=== PATIENT | female | born 1975 | race Caucasian/White ===

== ENCOUNTER 2019-07-21 13:15 | Outpatient (CLI) | payer MEDICARE, MEDICAID, SELFPAY ==
--- NOTE | 2019-07-21 13:29 | US_ITS ---
WS: [id number] RIGHT DIGITAL MAMMOGRAPHY WITH CAD CLINICAL INFORMATION: ABNORMAL/INCONCLUSIVE FINDING ON IMAGING OF BREAST COMPARISON: June 09, 2019 TECHNIQUE: 2 views of the right breast were obtained. FINDINGS: The right breast is composed of heterogeneous fibroglandular density tissue, which can limit the dete ction of small underlying mass lesions. Again seen is the focal 9 mm asymmetry in the anterior right breast. Ultrasound is pending. ULTRASOUND BREAST RIGHT TECHNIQUE: Ultrasound right breast focused area of concern. CLINICAL INFORMATION: ABNORMAL/INCONCLUSIVE FINDING ON IMAGING OF BREAST COMPARISON: None. FINDINGS: Ultrasound right breast at the 3 to 4:00 position 3 cm from the nipple. Hypoechoic complex cystic les ion with internal debris and septations. This lesion measures approximately 9.5 x 6.3 mm. Tiny amount of vascularity within the septations. This most likely represents a complex cyst but recommend furth er evaluation with ultrasound-guided biopsy/aspiration. US/US breast RT limited* [id number] IMPRESSION: BI-RADS: 4A-Suspicious: Low FOLLOW UP: US Guided Biopsy Recommended
== END 2019-07-21 13:16 | disposition home or self-care (01) ==
LOC: RADSHAW 13:21
PROVIDERS: Family Provider Family Medicine; Visit Provider Family Medicine
DX: R92.8 Other abnormal and inconclusive findings on diagnostic imaging of breast (principal)
CPT/HCPCS: 76642; 77065

== ENCOUNTER → 2019-07-22 15:37 | Outpatient (BNVA) | payer MEDICARE, MEDICAID, SELFPAY | PROVIDERS: Family Provider Family Medicine; PCP Family Medicine; Visit Provider Obstetrics & Gynecology | DX: N95.1 Menopausal and female climacteric states (principal) | CPT/HCPCS: 36415; 84443 ==

== ENCOUNTER 2019-08-03 21:56 | Emergency (ER) | payer MEDICARE, MEDICAID, SELFPAY ==
[2019-08-03 22:06] VITALS: BP 172/97; PULSE 94; RESP 18; TEMP 36.6; O2SAT 100; BMI 35.7
--- NOTE | 2019-08-03 22:09 | ED_ITS ---
Entered by Ann Sparks, acting as scribe for Aug 03, 2019 21:56 HPI - Allergic Reaction General: Chief complaint: Allergic Reaction Stated complaint: allergic reaction to unknown Time Seen by Provider: 08/03/19 22:05 Source: patient and family Mode of arrival: ambulatory History of Present Illness: HPI narrative: 43 y/o female presents to the ED with complaint of an allergic reaction. Pt states she has a hx of reactions from unknown causes. She had and episode of hives a few days ago, from an unidentified cause. Tonight she states she had another that began after dinner, this evening. MD complaint: allergic reaction Onset (ago): hour(s) Exposure: unknown Associated symptoms: Deny abdominal pain, dizziness, nausea or vomiting Severity: mild Review of Systems General: Reports: other (negative unless marked) Const: Denies: fever, chills, body aches, fatigue, malaise or diaphoresis Eyes: Denies: change in vision or blurry vision Card: Denies: chest pain, palpitations, irregular heart rhythm, syncope, pre- syncope, shortness of breath on exertion or shortness of breath when lying down GI: Denies: abdominal pain, nausea, vomiting, vomiting blood, coffee grounds in vomit, diarrhea, constipation, cramping, blood in stool or black tarry stool : Denies: flank pain, painful urination, urinary frequency, urinary urgency, decreased urine ouput, urinary incontinence or blood in urine Musc: Denies: neck pain, back pain, extremity pain, extremity swelling, joint pain, joint swelling, joint warmth or joint stiffness Neuro: Denies: headache, numbness in extremities, weakness in extremities, changes in sensation, lack of coordination, difficulty walking, dizziness, vertigo or confusion Endo: Denies: excessive thirst, tired all the time, cold intolerance, excessive sweating, flushing or hot flashes Johnny/Lymph: Denies: easy bruising, easy bleeding, petechiae or enlarged lymph nodes PFSH ED PFSH: Statuses (acute, chronic, etc) shown below reflect problem list status as previously entered and may not be historically accurate Surgical History History of hysterectomy (Acute) Family History Mother Breast cancer Hypertension Stroke Grandfather Heart disease maternal Social History Smoking and tobacco status: never smoked Alcohol intake: never Additional social history: poorly balanced diet Physical Exam Const: COMMON NORMALS: no apparent distress, oriented x3, no limitations, healthy appearing and well nourished EXAM LIMITATIONS: no altered mental status GENERAL APPEARANCE: cooperative, well kempt and well developed ORIENTATION/CONSCIOUSNESS: Yes awake Eye: COMMON NORMALS: PERRL, EOMs intact bilaterally, conjunctivae normal and no scleral icterus GENERAL EYE: normal appearance of both eyes and normal light reflex CONJUNCTIVA: Yes conjunctivae normal SCLERA: sclerae normal CORNEA: Yes corneas normal PUPIL: Yes PERRL DIRECT OPHTHALMOSCOPY: Yes normal light reflex Neck/C-Spine: COMMON NORMALS: full ROM, no lymphadenopathy, supple, no meningeal signs and no JVD GENERAL: Yes normal visual inspection and Yes trachea midline CERVICAL SPINE: Yes cervical ROM normal Chest: COMMONS NORMALS: inspection of chest normal and palpation of chest normal Resp: COMMON NORMALS: normal respiratory effort, no retractions, no use of accessory muscles and clear to auscultation bilaterally EFFORT & INSPECTION: Yes able to speak in complete sentences AUSCULTATION: clear to auscultation bilaterally Cardio: COMMON NORMALS: no JVD, regular rate, regular rhythm, S1 normal heart sound, S2 normal heart sound, no gallops, no clicks, no murmurs and no rub JUGULAR VENOUS DISTENTION: no JVD RATE: regular rate RHYTHM: regular rhythm HEART SOUNDS: S1 normal and S2 normal GI: COMMON NORMALS: soft to palpation, non-tender, no hepatosplenomegaly and no masses INSPECTION: Yes normal to inspection PALPATION: Yes soft and Yes no hepatosplenomegaly : COMMON NORMALS: Yes no CVA tenderness BLADDER/KIDNEY EXAM: Yes no CVA tenderness Back/Pelvis: COMMON NORMALS: no CVA tenderness, thoracic and lumbar spine normal to inspection, no thoracic nor lumbar tenderness and thoraco-lumbar ROM normal Extremity: COMMON NORMALS: normal to inspection, full ROM, normal capillary refill, no joint enlargement, no clubbing, cyanosis or edema and no calf tenderness Neuro: COMMON NORMALS: oriented x3, CN's II-XII intact bilaterally, moves all extremities, no focal motor deficits and no sensory deficits noted MENINGEAL SIGNS: Yes no meningeal signs Psych: COMMON NORMALS: mental status grossly normal, thought process normal, cooperative, affect normal, speech normal and activity/motor behavior normal APPEARANCE: Yes well kempt SPEECH: Yes normal speech THOUGHT PROCESS: normal thought process Course Vital Signs: Vital signs: Vital Signs Temperature 97.8 F 08/03/19 22:06 Pulse Rate 84 08/03/19 23:06 Respiratory Rate 16 08/03/19 22:36 Blood Pressure 167/88 08/03/19 23:06 Pulse Oximetry 97 08/03/19 22:21 MDM - Allergic Reaction MDM Narrative: Medical decision making narrative: Ileana comes in with an allergic reaction but now feels better. She has no angioedema, no throat ti ghtening, no shortness of breath only skin rash/hives. The hives that I saw were minimal. The symptoms have completely resolved and she is ready to go home. I had to give her a handwritten prescription for a Medrol Dosepak as she is allergic to prednisone. She has Pepcid and Benadryl at home that she will take and we discussed taking this on a scheduled basis for the next 3 days she denied having any questions or concerns with this. The Benadryl was 25 to 50 mg every 6 hours and the Pepcid was 40 mg every 12 hours and both were to be taken for the next 3 days. She understood to take the Medrol Dosepak to its completion. She had no other questions or concerns and agreed to follow-up as directed. Discharge Plan Discharge Patient Disposition: Home, Self-Care Clinical Impression: Allergic reaction Qualifiers: Encounter type: initial encounter Qualified Code(s): T78.40XA - Allergy, unspecified, initial encounter Condition: Stable Prescriptions: No Action amlodipine 5 mg tablet 2.5 mg PO DAILY RF: 0 epinephrine [EpiPen 2-Kostas] 0.3 mg/0.3 mL auto-injector 0.3 mg IM .as needed PRN (Reason: Allergic Reaction) RF: 0 ranitidine HCl 150 mg Tablet 150 mg PO DAILY RF: 0 Singulair 10 mg Tablet 10 mg PO DAILY RF: 0 Cymbalta 60 mg Capsule,Delayed Release(Dr/Ec) 60 mg PO DAILY RF: 0 Zyrtec 10 mg Tablet,Disintegrating 30 mg PO DAILY RF: 0 Discharge Orders: Discharge Order (Routine); Ordered 08/03/19 Ordered By: Yesenia Ayaal Referrals: Lincoln Garcia [Primary Care Provider] - Miguel Viera MD [Family Provider] - 1-3 days Discharge Diet: Advance as tolerated Discharge Activity: Increase activity as tolerated Patient Instructions: Allergic Reaction, Anaphylaxis (ED) Activity Restrictions/Additional Instructions: Please return to the ER immediately for any of the signs or symptoms listed on your discharge instruction sheets, worsening/changing of your symptoms, you are not getting better as quickly as expected, or for ANY other cause or concerns. Take your medications as directed. Return to the ER for any difficulty breathin g, tightening in her throat or for any other cause for concern. Take the Medrol Dosepak as prescribed. Take your Benadryl and Pepcid as we have discussed. Take the Medrol Dosepak to completion and the Benadryl and Pepcid for the next 3 days as we discussed. Coding Level of Care Code ED Staff Assistant for Chg Fwd Exam Problem Focused The documentation recorded by the patsyibBridger landeros Ashley, accurately reflects the service I personally performed and the decisions made by Lucy blackwell Eli N Aug 03, 2019 21:56
[2019-08-03 22:21] VITALS: BP 172/97; PULSE 88; RESP 18; O2SAT 97
[2019-08-03] MEDS: sodium chloride 0.9% 1,000 ML 100 ML IV (22:23)
[2019-08-03] MEDS: famotidine 20 mg/2 mL INJ 40 MG IVP (22:23)
[2019-08-03 22:36] VITALS: BP 172/97; PULSE 86; RESP 16
[2019-08-03 23:06] VITALS: BP 167/88; PULSE 84
[2019-08-04 00:08] VITALS: BP 153/99; PULSE 90; RESP 18
--- NOTE | 2019-08-04 00:43 | PC.NURSE ---
Introduced self to patient and initiated vital signs. Pt is A&O x 4 and agreeable. Pt states that the reason for the ER visit today is due to an allergic reaction after eating pizza and other foods for dinner tonight. Pt also complaining of shortness of breath and skin discomfort. Reassured patient of needs and will continue to monitor. Awaiting provider at bedside.
== END 2019-08-04 00:17 | disposition home or self-care (01) ==
PROVIDERS: Emergency Provider Emergency Medicine; Family Provider Family Medicine; PCP Family Medicine
DX: T78.40XA Allergy, unspecified, initial encounter (principal); X58.XXXA Exposure to other specified factors, initial encounter
CPT/HCPCS: 96360; 96361; 96374; 99281; J2930; J3490; J7030

== ENCOUNTER 2021-06-03 12:13 | Emergency (ER) | payer MEDICARE, MEDICAID, SELFPAY ==
[2021-06-03 13:06] VITALS: BP 143/94; PULSE 82; RESP 16; TEMP 36.8; O2SAT 100
--- NOTE | 2021-06-03 15:15 | W.ED.ANIMALB ---
Documented by User: FRANCOIS Mackenzie 06/03/21 16:40 HPI - Animal Bite General: Chief Complaint: Animal Bite Stated Complaint: Cat Bite on Right Hand Time Seen by Provider: 06/03/21 15:08 History of Present Illness: HPI narrative: Patient got bit by her pet cat yesterday. Now has swelling to the right hand between the thumb and forefinger that extends up into her arm. Tetanus is up-to-date MD complaint: animal bite Onset (ago): day(s) Animal: cat Description of animal: household pet and immunizations UTD Mechanism: bite Location - Extremities: Right: hand Pain description: dull and constant Severity scale (1-10): 4 Context: playing with animal Associated symptoms: Reports no associated symptoms; Deny chills or fever(s) Review of Systems Const: Reports: body aches; Denies: fever(s) or chills Card: Denies: chest pain Resp: Denies: dyspnea Skin/Breast: Reports: erythema, skin tenderness and skin swelling PFSH ED PFSH: Surgical History History of hysterectomy Family History Mother Breast cancer Hypertension Stroke Grandfather Heart disease maternal Social History Smoking and tobacco status: never smoked Alcohol intake: never Additional social history: poorly balanced diet Physical Exam Const: COMMON NORMALS: no acute distress GENERAL APPEARANCE: cooperative Psych: COMMON NORMALS: mental status grossly normal Skin: OTHER: Marked swelling to right hand with 3 puncture wound bites between the thumb and forefinger. Red streaks extending up the right arm up through the AC space and stopping about and past that. Course Vital Signs: Vital signs: Vital Signs Temperature 98.2 F 06/03/21 13:06 Pulse Rate 87 06/03/21 19:48 Respiratory Rate 16 06/03/21 19:48 Blood Pressure 155/89 06/03/21 19:48 Pulse Oximetry 97 06/03/21 19:48 MDM - Animal Bite MDM Narrative: Medical decision making narrative: Patient with swelling to right hand after cat bite yesterday. PCP sent her over here for IV antibiotics. Patient complains of swelling started last night and redness moved up to arm. Patient has been afebrile. Does have some chills no fever. IV antibiotics were administered. Are antibiotics ordered. Patient follow-up primary care provider next week our return here if worsening symptoms. Discharge Plan Discharge Patient Disposition: Home Clinical Impression: Cat bite Qualifiers: Encounter type: initial encounter Qualified Code(s): W55.01XA - Bitten by cat, initial encounter Condition: Stable Prescriptions: New doxycycline hyclate 100 mg capsule 100 mg PO BID 7 Days Qty: 14 RF: 0 No Action amlodipine 5 mg tablet 2.5 mg PO DAILY RF: 0 epinephrine [EpiPen 2-Kostas] 0.3 mg/0.3 mL auto-injector 0.3 mg IM .as needed PRN (Reason: Allergic Reaction) RF: 0 ranitidine HCl 150 mg Tablet 150 mg PO DAILY RF: 0 Singulair 10 mg Tablet 10 mg PO DAILY RF: 0 Cymbalta 60 mg Capsule,Delayed Release(Dr/Ec) 60 mg PO DAILY RF: 0 Zyrtec 10 mg Tablet,Disintegrating 30 mg PO DAILY RF: 0 Discharge Orders: Discharge ED (Routine); Ordered 06/03/21 Ordered By: Kaiser Michaud Referrals: Miguel Viera MD [Primary Care Provider] - Discharge Diet: Usual diet Discharge Activity: Increase activity as tolerated Patient Instructions: Animal Bite (ED), Puncture Wound (ED) Activity Restrictions/Additional Instructions: Follow-up with medical provider as directed. Take medications as prescribed. Return to the ER or your medical provider if condition worsens. Please read and understand discharge instructions. If any questions ask please. Coding Level of Care Code ED Wildlife Conservation Professor for Chg Fwd Exam Expanded Problem Focused Documented by User: Rico Monzon DO 06/06/21 06:38 HPI - Animal Bite General: Chief Complaint: Animal Bite Stated Complaint: Cat Bite on Right Hand Time Seen by Provider: 06/03/21 15:08 PFSH ED PFSH: Surgical History History of hysterectomy Family History Mother Breast cancer Hypertension Stroke Grandfather Heart disease maternal Social History Smoking and tobacco status: never smoked Alcohol intake: never Additional social history: poorly balanced diet Course Vital Signs: Vital signs: Vital Signs Temperature 98.2 F 06/03/21 13:06 Pulse Rate 87 06/03/21 19:48 Respiratory Rate 16 06/03/21 19:48 Blood Pressure 155/89 06/03/21 19:48 Pulse Oximetry 97 06/03/21 19:48 MDM - Animal Bite MDM Narrative: Medical decision making narrative: Chart reviewed and patient discussed with midlevel. Agree with assessment and plan. Discharge Plan Discharge Patient Disposition: Home Clinical Impression: Cat bite Qualifiers: Encounter type: initial encounter Qualified Code(s): W55.01XA - Bitten by cat, initial encounter Condition: Stable Prescriptions: New doxycycline hyclate 100 mg capsule 100 mg PO BID 7 Days Qty: 14 RF: 0 No Action amlodipine 5 mg tablet 2.5 mg PO DAILY RF: 0 epinephrine [EpiPen 2-Kostas] 0.3 mg/0.3 mL auto-injector 0.3 mg IM .as needed PRN (Reason: Allergic Reaction) RF: 0 ranitidine HCl 150 mg Tablet 150 mg PO DAILY RF: 0 Singulair 10 mg Tablet 10 mg PO DAILY RF: 0 Cymbalta 60 mg Capsule,Delayed Release(Dr/Ec) 60 mg PO DAILY RF: 0 Zyrtec 10 mg Tablet,Disintegrating 30 mg PO DAILY RF: 0 Discharge Orders: Discharge ED (Routine); Ordered 06/03/21 Ordered By: Kaiser Michaud Referrals: Miguel Viera MD [Primary Care Provider] - Discharge Diet: Usual diet Discharge Activity: Increase activity as tolerated Patient Instructions: Animal Bite (ED), Puncture Wound (ED) Activity Restrictions/Additional Instructions: Follow-up with medical provider as directed. Take medications as prescribed. Return to the ER or your medical provider if condition worsens. Please read and understand discharge instructions. If any questions ask please. Coding Level of Care Code ED Wildlife Conservation Professor for Fidelina Fwd Exam Expanded Problem Focused
[2021-06-03] MEDS: doxycycline 100 MG in sodium chloride 0.9% (plus) 100 ML IV (16:45)
[2021-06-03 19:48] VITALS: BP 155/89; PULSE 87; RESP 16; O2SAT 97
== END 2021-06-03 18:00 | disposition home or self-care (01) ==
PROVIDERS: Emergency Provider Nurse Practitioner Family; PCP Family Medicine
DX: S61.451A Open bite of right hand, initial encounter (principal); W55.01XA Bitten by cat, initial encounter
CPT/HCPCS: 96365; 99283; J3490

== ENCOUNTER 2022-02-15 15:11 | Outpatient (CLI) | payer MEDICARE, MEDICAID, SELFPAY ==
[2022-02-15 16:00] LABS: Basophils # 0.1 10^3/uL (0.0-0.1); Basophils % 0.6 %; Eosinophils # 0.1 10^3/uL (0.0-0.8); Eosinophils % 1.2 %; Hematocrit 41.3 % (37.0-47.0); Hemoglobin 13.8 g/dL (11.5-15.3); Lymphocytes # 1.9 10^3/uL (0.8-4.8); Lymphocytes % 21.5 %; Mean Corpuscular HGB Conc 33.4 g/dL (30.0-36.0); Mean Corpuscular Hemoglobin 29.8 pg (28.0-34.0); Mean Corpuscular Volume 89.2 fl (81-99); Mean Platelet Volume 9.1 fL (7.4-10.4); Monocytes # 0.7 10^3/uL (0.2-0.9); Monocytes % 7.3 %; Neutrophils # 6.15 10^3/uL (1.8-7.7); Neutrophils % 69.1 %; Nucleated Red Blood Cells % 0 %; Platelet Count 391 10^3/cmm (130-400); Red Blood Count 4.63 10^6/uL (4.1-5.3); White Blood Count 8.9 10^3/uL (4.0-10.0)
[2022-02-15 16:14] LABS: Alanine Aminotransferase 32 U/L (0-33); Albumin Level 4.3 g/dL (3.5-5.2); Alkaline Phosphatase 93 IU/L (35-105); Anion Gap 15.3 (5-19); Aspartate Amino Transferase 21 U/L (0-32); Blood Urea Nitrogen 6 mg/dL (6-20); Calcium 9.4 mg/dL (8.5-10.5); Carbon Dioxide 27 mmol/L (22-29); Chloride 99 mmol/L (98-107); Globulin 2.8 g/dL (1.3-4.6); Glomerular Filtration Rate 76.9 mL/min (90-130); Glucose 133 mg/dL (65-115); Osmolality Calculated 286 mOsm/kg (285-295); Potassium 3.3 mmol/L (3.5-5.1); Sodium 138 mmol/L (136-145); Total Bilirubin 0.4 mg/dL (0.15-1.2); Total Protein 7.1 g/dL (6.6-8.7)
== END 2022-02-15 15:12 | disposition home or self-care (01) ==
PROVIDERS: PCP Family Medicine; Visit Provider Registered Nurse
DX: R53.83 Other fatigue (principal)
CPT/HCPCS: 80053; 85025

== ENCOUNTER → 2023-01-11 08:05 | Outpatient (BNVA) | payer MEDICARE, MEDICAID, SELFPAY | PROVIDERS: PCP Family Medicine; Visit Provider Nurse Practitioner Family | DX: Z51.89 Encounter for other specified aftercare (principal) | CPT/HCPCS: 99212 ==

== ENCOUNTER 2023-02-17 16:28 | Emergency (ER) | payer MEDICARE, MEDICAID, SELFPAY ==
[2023-02-17 17:00] VITALS: BP 134/66; PULSE 99; RESP 14; TEMP 36.7; O2SAT 96
[2023-02-17 17:06] VITALS: BP 145/89; PULSE 95; RESP 16; O2SAT 98
--- NOTE | 2023-02-17 17:13 | ED_ITS ---
HPI - Abdominal Pain General: Chief Complaint: Abdominal Pain Stated Complaint: abd pain/no bm/weight loss Time Seen by Provider: 02/17/23 17:13 History of Present Illness: Ms Medeiros is a 47-year-old lady with complex history including prior appendectomy and transvaginal hysterectomy presented the emergency department for abdominal pain. She notes pain for several months however has worsened lately. She apparently was told in the past that she had a umbilical hernia though reports that her pain feels lower down. Has nausea but no vomiting. Has constipation. Moderate to severe intensity symptoms. No other specific changes in health, exacerbating, or alleviating factors identified. Onset (ago): month(s) Pain Consistency: intermittent Severity: moderate Associated Symptoms: Reports no associated symptoms Review of Systems General: Reports: 10 or more systems reviewed and unremarkable except in HPI and below PFSH ED PFSH: Surgical History History of hysterectomy Family History Mother Breast cancer Hypertension Stroke Grandfather Heart disease maternal Social History Smoking and tobacco status: never smoked Alcohol intake: never Substance/Drug Use: never Additional social history: poorly balanced diet Physical Exam Const: COMMON NORMALS: alert GENERAL APPEARANCE: cooperative and well developed HENMT: COMMON NORMALS: normocephalic and atraumatic HEAD & SCALP: normocephalic and atraumatic Eye: COMMON NORMALS: conjunctivae normal CONJUNCTIVA: Yes conjunctivae normal SCLERA: sclerae normal Neck/C-Spine: COMMON NORMALS: supple GENERAL: Yes trachea midline Resp: COMMON NORMALS: clear to auscultation bilaterally EFFORT & INSPECTION: Yes able to speak in complete sentences AUSCULTATION: clear to auscultation bilaterally Cardio: COMMON NORMALS: regular rate and regular rhythm RATE: regular rate RHYTHM: regular rhythm GI: COMMON NORMALS: Soft to palpation PALPATION: Yes Soft to palpation, Yes Tenderness to palpation present (GI), No Guarding due to palpation present (GI) and No Rigid due to palpation Extremity: GENERAL: Yes normal exam except as noted and No edema Neuro: COMMON NORMALS: moves all extremities SENSORIUM/ORIENTATION: Yes alert and No Orientation impaired Psych: COMMON NORMALS: mental status grossly normal and Normal thought process present THOUGHT PROCESS: Normal thought process present Course Vital Signs: Vital signs: Vital Signs Temperature 98.0 F 02/17/23 17:00 Pulse Rate 88 02/17/23 18:36 Respiratory Rate 16 02/17/23 17:06 Blood Pressure 154/93 02/17/23 20:29 Pulse Oximetry 98 02/17/23 20:29 Oxygen Delivery Me thod Room Air 02/17/23 17:36 MDM - Abdominal Pain Medical Decision Making 47-year-old lady presenting with abdominal symptoms. Exam as above. Abdominal pain with no evidence of acute surgical abdomen. Labs with mild leukocytosis, normal hemoglobin and platelet count. No significant electrolyte derangement to explain symptoms. hCG negative. No UTI. Mild dehydration. CT with no acute findings per incidental findings discussed. No obstruction or fecal impaction. Patient improved with fluids, antispasmodic, analgesia, antiemetic. She is able to tolerate p.o. intake. The results of ED evaluation were discussed with the patient including prescriptions and/or symptomatic cares (if applicable) including appropriate and responsible use, followup plan, and return precautions. The patient verbalized understanding and felt safe for discharge. Medical Records I reviewed the patient's medical records. Lab Data I reviewed the patient's lab results. 02/17/23 17:33 02/17/23 17:33 Labs/Radiology: Radiology Impressions Abdomen/Pelvis CT 02/17/23 17:59 IMPRESSION: 1. No acute findings. 2. Nonobstructing left renal calculus. 3. Mild diverticulosis of the colon. COMMENTS: Consistent with the [employer]'s Incidental Findings Committee white paper (J Am Dao Radiol 2018): Any incidental renal lesion less than 1 cm or classified as too small to characterize, or any incidental cystic renal lesion characterized as simple-appearing, is likely benign. No follow-up imaging is recommended for these lesions per consensus recommendations based on imaging criteria. Laboratory Results WBC 12.1 10^3/uL (4.0-10.0) H 02/17/23 17:33 RBC 4.99 10^6/uL (4.1-5.3) 02/17/23 17:33 Hgb 14.9 g/dL (11.5-15.3) 02/17/23 17:33 Hct 43.7 % (37.0-47.0) 02/17/23 17: MCV 87.6 fl (81-99) 02/17/23 17: MCH 29.9 pg (28.0-34.0) 02/17/23 17: MCHC 34.1 g/dL (30.0-36.0) 02/17/23 17: RDW 11.6 % (12.1-15.1) L 02/17/23 17: Plt Count 313 10^3/cmm (130-400) 02/17/23 17: MPV 8.9 fL (7.4-10.4) 02/17/23 17: Neut % (Auto) 74.3 % 02/17/23 17: Lymph % (Auto) 14.1 % 02/17/23 17: [place] % (Auto) 9.2 % 02/17/23 17: Eos % (Auto) 0.7 % 02/17/23 17: Baso % (Auto) 0.5 % 02/17/23 17: Neut # (Auto) 9.00 10^3/uL (1.8-7.7) H 02/17/23 17:33 Lymph # (Auto) 1.7 10^3/uL (0.8-4.8) 02/17/23 17: [place] # (Auto) 1.1 10^3/uL (0.2-0.9) H 02/17/23 17: Eos # (Auto) 0.1 10^3/uL (0.0-0.8) 02/17/23 17: Baso # (Auto) 0.1 10^3/uL (0.0-0.1) 02/17/23 17: Nucleated RBC % (auto) 0 % 02/17/23 17: Nucleated RBCs # 0.0 /100WBC 02/17/23 17: Sodium 135 mmol/L (136-145) L 02/17/23 17: Potassium 4.4 mmol/L (3.5-5.1) 02/17/23 17: Chloride 100 mmol/L (98-107) 02/17/23 17: Carbon Dioxide 24 mmol/L (22-29) 02/17/23 17:33 Anion Gap 15.4 (5-19) 02/17/23 17:33 BUN 9 mg/dL (6-20) 02/17/23 17:33 Creatinine 0.9 mg/dL (0.5-0.9) 02/17/23 17:33 GFR Calculation 66.8 mL/min (90-130) L 02/17/23 17:33 Glucose 74 mg/dL (65-115) 02/17/23 17:33 POC Glucose 77 mg/dL (70-110) 02/17/23 17:48 Calculated Osmolality 277 mOsm/kg (285-295) L 02/17/23 17:33 Calcium 10.6 mg/dL (8.5-10.5) H 02/17/23 17:33 Total Bilirubin 0.4 mg/dL (0.15-1.2) 02/17/23 17:33 AST 22 U/L (0-32) 02/17/23 17:33 ALT 29 U/L (0-33) 02/17/23 17:33 Alkaline Phosphatase 84 U/L (35-105) 02/17/23 17:33 Total Protein 7.4 g/dL (6.6-8.7) 02/17/23 17:33 Albumin 4.2 g/dL (3.5-5.2) 02/17/23 17:33 Globulin 3.2 g/dL (1.3-4.6) 02/17/23 17:33 Lipase 24 U/L (13-60) 02/17/23 17:33 HCG, Qual Negative (Negative) 02/17/23 17:33 Urine Color Yellow (Yellow) 02/17/23 18:48 Urine Appearance Clear (CLEAR) 02/17/23 18:48 Urine pH 7 (5-7) 02/17/23 18:48 Ur Specific [place] 1.010 (1.005-1.030) 02/17/23 18:48 Urine Protein Neg (Negative) 02/17/23 18:48 Urine Glucose (UA) Norm (Normal) 02/17/23 18:48 Urine Ketones 1+ (Negative) H 02/17/23 18:48 Urine Blood Neg (Negative) 02/17/23 18:48 Urine Nitrate Negative (Negative) 02/17/23 18:48 Urine Bilirubin Neg (Negative) 02/17/23 18:48 Urine Urobilinogen Norm mg/dL (Negative) 02/17/23 18:48 Ur Leukocyte Esterase Negative (Negative) 02/17/23 18:48 Discharge Plan Discharge Patient Disposition: Home Clinical Impression: Abdominal pain Condition: Stable Prescriptions: New tramadol 50 mg tablet 50 mg PO Q6H PRN (Reason: pain) Qty: 14 0RF No Action amlodipine 5 mg tablet 2.5 mg PO DAILY epinephrine [EpiPen 2-Kostas] 0.3 mg/0.3 mL auto-injector 0.3 mg IM .as needed PRN (Reason: Allergic Reaction) ranitidine HCl 150 mg Tablet 150 mg PO DAILY Singulair 10 mg Tablet 10 mg PO DAILY Cymbalta 60 mg Capsule,Delayed Release(Dr/Ec) 60 mg PO DAILY Zyrtec 10 mg Tablet,Disintegrating 30 mg PO DAILY Discharge Orders: Discharge ED (Routine); Ordered 02/17/23 Ordered By: Cristobal Hardy Referrals: Miguel Viera MD [Primary Care Provider] - Discharge Diet: Advance as tolerated and Clear Liquid Discharge Activity: Increase activity as tolerated Patient Instructions: Abdominal Pain (ED), Opioid Safety Activity Restrictions/Additional Instructions: Thank you for visiting the emergency department. You were seen and eval for abdominal pain. The exact cause of your symptoms is unclear as discussed. I recommend continued outpatient follow-up. Return for uncontrolled symptoms or anything else that you are concerned about and feel needs emergency department evaluation. Coding Level of Care Code ED Taste Tester for Fidelina Duran
[2023-02-17 17:36] VITALS: PULSE 93; O2SAT 97
[2023-02-17 17:42] LABS: Basophils # 0.1 10^3/uL (0.0-0.1); Basophils % 0.5 %; Eosinophils # 0.1 10^3/uL (0.0-0.8); Eosinophils % 0.7 %; Hematocrit 43.7 % (37.0-47.0); Hemoglobin 14.9 g/dL (11.5-15.3); Lymphocytes # 1.7 10^3/uL (0.8-4.8); Lymphocytes % 14.1 %; Mean Corpuscular HGB Conc 34.1 g/dL (30.0-36.0); Mean Corpuscular Hemoglobin 29.9 pg (28.0-34.0); Mean Corpuscular Volume 87.6 fl (81-99); Mean Platelet Volume 8.9 fL (7.4-10.4); Monocytes # 1.1 10^3/uL (0.2-0.9); Monocytes % 9.2 %; Neutrophils % 74.3 %; Nucleated Red Blood Cells % 0 %; Platelet Count 313 10^3/cmm (130-400); Red Blood Count 4.99 10^6/uL (4.1-5.3); Red Cell Distribution Width 11.6 % (12.1-15.1); White Blood Count 12.1 10^3/uL (4.0-10.0)
[2023-02-17] MEDS: ondansetron 2 mg/ML SDV 2 mL 4 MG IVP (17:54)
[2023-02-17] MEDS: sodium chloride 0.9% 1,000 ML 999 ML IV (17:55)
--- NOTE | 2023-02-17 17:59 | CTR_ITS ---
PROCEDURE INFORMATION: Exam: CT Abdomen And Pelvis With Contrast Exam date and time: 02/17/2023 6:51 PM Age: 47 years old Clinical indication: Abdominal pain; Generalized; Additional info: Abd pain, lower, worsening TECHNIQUE: Imaging protocol: Computed tomography of the abdomen and pelvis with contrast. Radiation optimization: All CT scans at this facility use at least one of these dose optimization techniques: automated exposure control; mA and/or kV adjustment per patient size (includes targeted exams where dose is matched to clinical indication); or iterative reconstruction. Contrast material: OMNIPAQUE 350; Contrast volume: 100 ml; Contrast route: INTRAVENOUS (IV); REPORTING DATA: Count of CT and Cardiac NM exams in prior 12 months: This patient has received 0 known CTs and 0 known cardiac nuclear medicine studies in the 12 months prior to the current study. COMPARISON: NM hepatobiliary w phar* [id number] 01/24/2017 7:41 AM RADIATION DOSE METRICS: Total DLP (mGy-cm): 910.47 FINDINGS: Tubes, catheters and devices: Pacemaker leads in the heart. Liver: Normal. No mass. Gallbladder and bile ducts: Normal. No calcified stones. No ductal dilation. Pancreas: Normal. No ductal dilation. Spleen: Normal. No splenomegaly. Adrenal glands: Normal. No mass. Kidneys and ureters: 5 mm nonobstructing calculus in the left kidney. Small central cysts in the left kidney, Hounsfield units less than 20. The right kidney is normal. No ureteral calculus or hydronephrosis. Stomach and bowel: Mild diverticulosis of the distal colon. No diverticulitis. Contrast opacified stomach and small bowel are unremarkable. No wall thickening or obstruction. Appendix: The appendix is not visualized. No secondary signs of appendicitis. Intraperitoneal space: Unremarkable. No free air. No significant fluid collection. Vasculature: Unremarkable. No abdominal aortic aneurysm. Lymph nodes: Unremarkable. No enlarged lymph nodes. Urinary bladder: Unremarkable as visualized. Reproductive: The uterus is absent. Bilateral ovarian follicles or small benign cysts measuring up to 2.5 cm. Bones/joints: Mild degenerative changes of the spine. No acute fracture. Soft tissues: Small fat containing umbilical hernia. CT/CT abdomen pelvis w con* [id number] IMPRESSION: 1. No acute findings. 2. Nonobstructing left renal calculus. 3. Mild diverticulosis of the colon. COMMENTS: Consistent with the [employer]'s Incidental Findings Committee white paper (J Am Dao Radiol 2018): Any incidental renal lesion less than 1 cm or classified as too small to characterize, or any incidental cystic renal lesion characterized as simple-appearing, is likely benign. No follow-up imaging is recommended for these lesions per consensus recommendations based on imaging criteria.
[2023-02-17] MEDS: ketorolac 30 mg/mL INJ 15 MG IVP (18:04)
[2023-02-17 18:10] LABS: Glucose Point of Care 77 mg/dL (70-110)
[2023-02-17 18:12] LABS: Alanine Aminotransferase 29 U/L (0-33); Albumin Level 4.2 g/dL (3.5-5.2); Alkaline Phosphatase 84 U/L (35-105); Anion Gap 15.4 (5-19); Aspartate Amino Transferase 22 U/L (0-32); Blood Urea Nitrogen 9 mg/dL (6-20); Calcium 10.6 mg/dL (8.5-10.5); Carbon Dioxide 24 mmol/L (22-29); Chloride 100 mmol/L (98-107); Globulin 3.2 g/dL (1.3-4.6); Glomerular Filtration Rate 66.8 mL/min (90-130); Glucose 74 mg/dL (65-115); Lipase 24 U/L (13-60); Osmolality Calculated 277 mOsm/kg (285-295); Potassium 4.4 mmol/L (3.5-5.1); Sodium 135 mmol/L (136-145); Total Bilirubin 0.4 mg/dL (0.15-1.2); Total Protein 7.4 g/dL (6.6-8.7)
[2023-02-17 18:16] LABS: HCG, Serum Qual Negative (Negative)
[2023-02-17 18:36] VITALS: BP 181/110; PULSE 88; O2SAT 97
[2023-02-17] MEDS: iohexol 350 mg/mL 500 mL Btl (per mL) IV (18:51)
[2023-02-17 18:53] LABS: Add Urine Microscopic? NO; Charge for UA Resulting for Rev
[2023-02-17] MEDS: barium sulfate 450 mL Oral Susp PO (18:53)
[2023-02-17 18:59] LABS: Urine Appearance Clear (CLEAR); Urine Color Yellow (Yellow)
[2023-02-17 19:00] LABS: Bilirubin Urine Neg (Negative); Blood Urine Neg (Negative); Glucose Urine UA Norm (Normal); Ketones Urine 1+ (Negative); Leukocyte Esterase Urine Negative (Negative); Nitrate Urine Negative (Negative); Protein Urine Neg (Negative); Urobilinogen Urine Norm (Negative); pH Urine 7 (5-7)
[2023-02-17] MEDS: dicyclomine 10 mg Capsule PO (20:10)
[2023-02-17 20:29] VITALS: BP 154/93; O2SAT 98
== END 2023-02-17 20:30 | disposition home or self-care (01) ==
PROVIDERS: Nurse Practitioner Family; Emergency Provider Emergency Medicine; PCP Family Medicine
DX: R10.9 Unspecified abdominal pain (principal); K57.30 Diverticulosis of large intestine without perforation or abscess without bleeding
CPT/HCPCS: 36415; 36416; 74177; 80053; 81003; 82962; 83690; 84703; 85025; 96374; 96375; 99285; J1885; J2405; J7030; Q9967

== ENCOUNTER 2023-11-22 21:23 | Emergency (ER) | payer MEDICARE, MEDICAID, SELFPAY ==
[2023-11-22 21:29] VITALS: BP 139/71; PULSE 84; RESP 20; TEMP 36.7; O2SAT 100; BMI 33.3
--- NOTE | 2023-11-22 23:21 | XRR_ITS ---
PROCEDURE INFORMATION: Exam: XR Cervical Spine Exam date and time: 11/23/2023 12:05 AM Age: 48 years old Clinical indication: Neck pain; Additional info: Neck pain radiating into right arm TECHNIQUE: Imaging protocol: Radiologic exam of the cervical spine. Views: 2 or 3 views. COMPARISON: CR XR cervical spine 4-5V [id number] 07/02/2017 2:36 PM FINDINGS: Bones/joints: There is a diffuse loss of disc height seen within the cervical spine most notably C5-C7 compatible with degenerative disc disease. This appears more prominent today compared 07/02/2017. Soft tissues: Unremarkable. XR/XR cervical spine 3V* [id number] IMPRESSION: There are no acute osseous findings.
--- NOTE | 2023-11-23 00:11 | ED_ITS ---
HPI - Neck Pain/Injury General: Chief Complaint: Neck Pain/Injury Stated Complaint: Bone Spur in C7\Pain Time Seen by Provider: 11/23/23 00:10 History of Present Illness: Patient has known vertebral disc disease and spurring in the neck. Patient is awaiting surgery for the neck. Patient received a epidural at the middle of October but over the last 2 to 3 days he has had recurring of her pain. Patient was unable to control it tonight with medications at home. Patient started a steroid dose taper today and some muscle relaxers with minimal relief. Review of Systems General: Reports: 10 or more systems reviewed and unremarkable except in HPI and below Musc: Reports: neck pain PFSH ED PFSH: Surgical History History of hysterectomy Family History Mother Breast cancer Hypertension Stroke Grandfather Heart disease maternal Social History Smoking and tobacco/nicotine status: never used tobacco/nicotine Alcohol intake: never Substance/Drug Use: never Additional social history: poorly balanced diet Physical Exam Const: COMMON NORMALS: alert HENMT: COMMON NORMALS: normocephalic HEAD & SCALP: normocephalic Neck/C-Spine: COMMON NORMALS: full ROM CERVICAL SPINE: Yes Cervical spine tenderness Resp: COMMON NORMALS: normal respiratory effort Cardio: COMMON NORMALS: regular rate RATE: regular rate GI: COMMON NORMALS: non-tender Back/Pelvis: COMMON NORMALS: thoracic and lumbar spine normal to inspection Neuro: SENSORIUM/ORIENTATION: Yes alert Skin: COMMON NORMALS: turgor normal GENERAL SKIN EXAM: turgor normal Course Vital Signs: Vital signs: Vital Signs Temperature 98.0 F 11/22/23 21:29 Pulse Rate 84 11/22/23 21:29 Respiratory Rate 20 H 11/22/23 21:29 Blood Pressure 139/71 11/22/23 21:29 Pulse Oximetry 100 11/22/23 21:29 Oxygen Delivery Me thod Room Air 11/22/23 21:29 MDM - Neck Pain/Injury Medical Decision Making Patient comes in for worsening neck pain. On exam patient appears nontoxic. Patient has some tenderness along the cervical vertebra. Patient has normal range of motion of the neck. Patient has muscle tenderness of the cervical spine. Differential diagnosis intervertebral disc disease, facet arthritis, cervical radiculopathy, cervical strain. Patient does have known vertebral disc disease. Will go ahead and treat patient's acute pain with a dose of hydromorphone 1 mg, 10 mg of dexamethasone, and 30 mg ketorolac. Patient was recommended to follow-up with primary care for further instructions. Patient was written for 7 tablets of hydrocodone. Patient reports understanding agreed to plan. XR interpretation done by ED provider, pending radiology final review Discharge Plan Discharge Patient Disposition: Home Clinical Impression: Cervical pain (neck) Condition: Stable Prescriptions: New hydrocodone-acetaminophen 5-325 mg tablet 1 tab PO Q8H PRN (Reason: pain) Qty: 7 0RF No Action amlodipine 5 mg tablet 2.5 mg PO DAILY epinephrine [EpiPen 2-Kostas] 0.3 mg/0.3 mL auto-injector 0.3 mg IM .as needed PRN (Reason: Allergic Reaction) ranitidine HCl 150 mg Tablet 150 mg PO DAILY Singulair 10 mg Tablet 10 mg PO DAILY Cymbalta 60 mg Capsule,Delayed Release(Dr/Ec) 60 mg PO DAILY Zyrtec 10 mg Tablet,Disintegrating 30 mg PO DAILY tramadol 50 mg tablet 50 mg PO Q6H PRN (Reason: pain) Qty: 14 0RF Discharge Orders: Discharge ED (Routine); Ordered 11/23/23 Ordered By: Juan Jose Goff Referrals: Sharron Horan NP [Primary Care Provider] - Discharge Diet: Usual diet Discharge Activity: Increase activity as tolerated Patient Instructions: Neck Pain (ED), Opioid Safety Activity Restrictions/Additional Instructions: Activity as tolerated. Follow-up with specialist tomorrow regarding pain. Return to ER for new concerns. Coding Level of Care Code ED Button Machine Operator for Fidelina Duran
[2023-11-23 01:02] VITALS: RESP 18
[2023-11-23] MEDS: HYDROmorphone 1 mg/mL INJ 1 mL IM (01:02)
[2023-11-23] MEDS: ketorolac 30 mg/mL INJ IM (01:02)
[2023-11-23] MEDS: dexamethasone 10 mg/mL INJ IM (01:02)
== END 2023-11-23 01:00 | disposition home or self-care (01) ==
PROVIDERS: Emergency Provider Nurse Practitioner Family; PCP Nurse Practitioner Family
DX: M54.2 Cervicalgia (principal)
CPT/HCPCS: 72040; 96372; 99284; J1100; J1170; J1885

== ENCOUNTER 2024-06-23 14:54 | Emergency (ER) | payer MEDICARE, MEDICAID, SELFPAY ==
[2024-06-23 14:57] VITALS: BP 145/74; PULSE 86; RESP 18; TEMP 36.7; O2SAT 99; BMI 31.4
--- NOTE | 2024-06-23 15:08 | ED_ITS ---
HPI - Abdominal Pain 2 General: Chief Complaint: Abdominal Pain Stated Complaint: abd pain, n/v Time Seen by Provider: 06/23/24 14:56 Source: patient and family Mode of arrival: EMS Limitations: no limitations History of Present Illness: Patient is a 48-year-old female presents to ED today via EMS after she was sent here from an outlying clinic for further evaluation of abdominal pain. Most of history is provided by patient's significant other. He states patient has had intermittent abdominal pains over the past several months. She was seen here in our facility over a year ago for similar symptoms. She states she has seen her primary care provider many times for this issue and significant other states that her provider seems to think it might be adhesions. 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 Patient states she has not been referred to GI. Significant other states she can barely eat and has lost weight over the past 2 weeks. She has never ran fevers. States she is having a little non-bloody diarrhea. Denies urinary symptoms. She was at clinic today and given zofran. She states while at the clinic the pain triggered an Raynaud's reaction which is reportedly common for her. States she has had colonoscopies in the past that were unremarkable. She has also had EGD. MD elicited complaint: abdominal pain Pertinent past history: none Onset (ago): month(s) Pain Consistency: intermittent Location: Diffuse Severity: severe Quality: cramping and burning Radiation: none Migration to: no migration Relieving factors: nothing Associated Symptoms: Reports diarrhea and nausea; Denies chills, dysuria, fever(s), hematemesis and vomiting Related Data Home Medications Medication Instructions Recorded Confirmed amlodipine 5 mg tablet 2.5 mg PO DAILY 07/22/19 08/03/19 epinephrine 0.3 mg/0.3 mL 0.3 mg IM .as needed PRN Allergic 07/22/19 08/03/19 injection, auto-injector (EpiPen Reaction 2-Kostas) cetirizine 10 mg disintegrating 30 mg PO DAILY 08/03/19 08/03/19 tablet (Zyrtec) duloxetine 60 mg capsule,delayed 60 mg PO DAILY 08/03/19 08/03/19 release (Cymbalta) montelukast 10 mg tablet 10 mg PO DAILY 08/03/19 08/03/19 (Singulair) ranitidine HCl 150 mg tablet 150 mg PO DAILY 08/03/19 08/03/19 Previous Rx's Medication Instructions Recorded tramadol 50 mg tablet 50 mg PO Q6H PRN pain #14 tabs 02/17/23 hydrocodone 5 mg-acetaminophen 325 1 tab PO Q8H PRN pain #7 tabs 11/23/23 mg tablet Allergies Allergy/AdvReac Type Severity Reaction Status Date / Time vancomycin Allergy Severe anaphylaxis, Verified 02/17/23 17:06 hives, yeast infection Penicillins Allergy Intermediate hives, Verified 02/17/23 17:06 yeast infection sulfamethoxazole Allergy Intermediate hives, Verified 02/17/23 17:06 [From Bactrim] yeast infection trimethoprim [From Bactrim] Allergy Intermediate hives, Verified 02/17/23 17:06 yeast infection Review of Systems 2 Const: Denies: fever(s), chills, body aches, fatigue or malaise Eyes: Denies: change in vision, blurry vision, photophobia, floaters or seeing flashes ENMT: Denies: throat pain, odynophagia, ear or mastoid pain, nasal discharge, nasal congestion or sinus pain Card: Denies: chest pain Resp: Denies: dyspnea GI: Reports: abdominal pain, nausea and diarrhea; Denies: vomiting or hematemesis : Denies: flank pain, difficulty voiding, dysuria, urinary frequency, urinary urgency or urinary hesitancy Musc: Denies: neck pain, back pain, extremity pain, extremity swelling, joint pain or joint swelling Skin/Breast: Reports: rash and erythema Neuro: Denies: headache(s), numbness in extremities, weakness in extremities or sensory changes PFSH ED 2 PFSH: Surgical History History of hysterectomy Family History Mother Breast cancer Hypertension Stroke Grandfather Heart disease maternal Social History Smoking and tobacco/nicotine status: never used tobacco/nicotine Alcohol intake: never Substance/Drug Use: never Additional social history: poorly balanced diet Physical Exam 2 Const: COMMON NORMALS: average body habitus, patient oriented x3, no limitations, healthy appearing, alert and well nourished GENERAL APPEARANCE: cooperative ORIENTATION/CONSCIOUSNESS: Yes awake, Yes oriented to person, Yes oriented to place and Yes oriented to time OTHER: face is flushed from her what she states is an allergic Raynaud's reaction HENMT: COMMON NORMALS: normocephalic and atraumatic HEAD & SCALP: normal to inspection, normocephalic and atraumatic Eye: COMMON NORMALS: no scleral icterus Neck/C-Spine: COMMON NORMALS: no lymphadenopathy GENERAL: Yes normal visual inspection Resp: COMMON NORMALS: normal respiratory effort and clear to auscultation bilaterally AUSCULTATION: clear to auscultation bilaterally Cardio: COMMON NORMALS: regular rate and regular rhythm RATE: regular rate RHYTHM: regular rhythm GI: COMMON NORMALS: Soft to palpation INSPECTION: Yes normal to inspection AUSCULTATION: Yes Hypoactive bowel sounds present PALPATION: Yes Soft to palpation, Yes Tenderness to palpation present (GI) (diffusely) and Yes Guarding due to palpation present (GI) : COMMON NORMALS: Yes no CVA tenderness BLADDER/KIDNEY EXAM: Yes no CVA tenderness Back/Pelvis: COMMON NORMALS: no CVA tenderness and thoracic and lumbar spine normal to inspection Extremity: GENERAL: Yes normal exam except as noted Neuro: PITER COMA SCALE: document GCS findings [place] coma scale eye opening: Spontaneous Piter coma scale verbal response: Orientated Piter coma scale motor response: Obey commands [place] coma scale total score: 15 COMMON NORMALS: patient oriented x3, moves all extremities, no focal motor deficits and no sensory deficits noted SENSORIUM/ORIENTATION: Yes alert, Yes oriented to person, Yes oriented to place and Yes oriented to time Skin: COMMON NORMALS: no rashes or lesions noted GENERAL SKIN EXAM: no rashes or lesions noted Course 2 Vital Signs: Vital signs: Vital Signs Temperature 98.1 F 06/23/24 14:57 Pulse Rate 103 H 06/23/24 16:06 Respiratory Rate 18 06/23/24 14:57 Blood Pressure 131/75 06/23/24 16:06 Pulse Oximetry 100 06/23/24 16:06 Oxygen Delivery Me thod Room Air 06/23/24 16:06 MDM - Abdominal Pain Medical Decision Making Patient is a 48-year-old with intermittent/chronic abdominal pains for months. Vital signs have been stable. Blood work here is unremarkable apart from mild hypokalemia. She was given oral supplementation for this. UA was unable to be collected during her stay today but states the clinic did urine analysis prior to her arriving here and this was unremarkable. CT scan is unremarkable. At this point I think patient would benefit from further evaluation from gastroenterology. She states she has had colonoscopy/EGDs as well as allergy testing for alpha gal and gluten. From an emergency standpoint, she is cleared for discharge. Return to ED precautions given. Medical Records I reviewed the patient's medical records. Lab Data I reviewed the patient's lab results. 06/23/24 15:18 06/23/24 15:18 Labs/Radiology: Radiology Impressions Abdomen/Pelvis CT 06/23/24 15:08 IMPRESSION: 1. Prior appendectomy. 2. No GI tract obstruction. 3. Moderate diffuse constipation. No obstruction or diverticulitis. 4. No ascites. No free air. Laboratory Results WBC 8.49 10^3/uL (3.29-11.43) 06/23/24 15:18 RBC 4.52 10^6/uL (3.85-5.65) 06/23/24 15:18 Hgb 13.60 g/dL (11.27-16.99) 06/23/24 15:18 Hct 40.2 % (36-47) 06/23/24 15:18 MCV 88.9 fl (85-98) 06/23/24 15:18 MCH 30.1 pg (27-33) 06/23/24 15:18 MCHC 33.8 g/dL (30-55) 06/23/24 15:18 RDW 13.0 % (12.1-15.1) 06/23/24 15:18 Plt Count 294 10^3/cmm (157-399) 06/23/24 15:18 MPV 8.6 fL (7.4-10.4) 06/23/24 15:18 Neut % (Auto) 71.7 % 06/23/24 15:18 Lymph % (Auto) 18.7 % 06/23/24 15:18 [place] % (Auto) 8.6 % 06/23/24 15:18 Eos % (Auto) 0.1 % 06/23/24 15:18 Baso % (Auto) 0.4 % 06/23/24 15:18 Neut # (Auto) 6.09 10^3/uL (1.8-7.7) 06/23/24 15:18 Lymph # (Auto) 1.6 10^3/uL (0.8-4.8) 06/23/24 15:18 [place] # (Auto) 0.7 10^3/uL (0.2-0.9) 06/23/24 15:18 Eos # (Auto) 0.0 10^3/uL (0.0-0.8) 06/23/24 15:18 Baso # (Auto) 0.0 10^3/uL (0.0-0.1) 06/23/24 15:18 Nucleated RBC % (auto) 0 % 06/23/24 15:18 Nucleated RBCs # 0.0 /100WBC 06/23/24 15:18 Sodium 140 mmol/L (136-145) 06/23/24 15:18 Potassium 3.2 mmol/L (3.5-5.1) L 06/23/24 15:18 Chloride 102 mmol/L (98-107) 06/23/24 15:18 Carbon Dioxide 19 mmol/L (22-29) L 06/23/24 15:18 Anion Gap 22.2 (5-19) H 06/23/24 15:18 BUN 10 mg/dL (6-20) 06/23/24 15:18 Creatinine 1.0 mg/dL (0.5-0.9) H 06/23/24 15:18 GFR Calculation 58.9 mL/min (90-130) L 06/23/24 15:18 Glucose 103 mg/dL (65-115) 06/23/24 15:18 Calculated Osmolality 289 mOsm/kg (285-295) 06/23/24 15:18 Calcium 9.8 mg/dL (8.5-10.5) 06/23/24 15:18 Total Bilirubin 0.8 mg/dL (0.15-1.2) 06/23/24 15:18 AST 23 U/L (0-32) 06/23/24 15:18 ALT 28 U/L (0-33) 06/23/24 15:18 Alkaline Phosphatase 76 U/L (35-105) 06/23/24 15:18 Total Protein 7.3 g/dL (6.6-8.7) 06/23/24 15:18 Albumin 4.3 g/dL (3.5-5.2) 06/23/24 15:18 Globulin 3.0 g/dL (1.3-4.6) 06/23/24 15:18 Lipase 21 U/L (13-60) 06/23/24 15:18 HCG, Qual Negative (Negative) 06/23/24 15:18 All radiology interpretation(s) finalized by discharge Discharge Plan Discharge Patient Disposition: Home Clinical Impression: Abdominal pain Condition: Stable Prescriptions: No Action amlodipine 5 mg tablet 2.5 mg PO DAILY epinephrine [EpiPen 2-Kostas] 0.3 mg/0.3 mL auto-injector 0.3 mg IM .as needed PRN (Reason: Allergic Reaction) ranitidine HCl 150 mg Tablet 150 mg PO DAILY Singulair 10 mg Tablet 10 mg PO DAILY Cymbalta 60 mg Capsule,Delayed Release(Dr/Ec) 60 mg PO DAILY Zyrtec 10 mg Tablet,Disintegrating 30 mg PO DAILY tramadol 50 mg tablet 50 mg PO Q6H PRN (Reason: pain) Qty: 14 0RF hydrocodone-acetaminophen 5-325 mg tablet 1 tab PO Q8H PRN (Reason: pain) Qty: 7 0RF Discharge Orders: Discharge ED (Routine); Ordered 06/23/24 Ordered By: Gracia Figueroa Referrals: Sharron Horan AMUSEMENT RIDE OPERATOR [Primary Care Provider] - Patient Instructions: Abdominal Pain (ED) Activity Restrictions/Additional Instructions: As we discussed, your blood work here overall is unremarkable apart from a mildly low potassium in which you were given oral supplementation for. Your CT scan was unremarkable. At this time I am placing a referral for you to see [facility] for further evaluation of your abdominal pain. Coding Level of Care Code ED Master Rigger for Fidelina Duran
--- NOTE | 2024-06-23 15:08 | CT_ITS ---
WS: [id number] CT ABDOMEN AND PELVIS WITH CONTRAST HISTORY: reporting severe abdomen pain, nausea TECHNIQUE: Imaging performed of the abdomen and pelvis with IV contrast. Single phase imaging of the abdomen. Coronal and sagittal reformats are submitted. All CT scans at [facility] use at [address] one of these dose optimization techniques: automated exposure control; mA and/or kV adjustment per patient size (includes targeted exams where dose is matched to clinical indication); or iterative re construction. IV CONTRAST: Omnipaque 350; 100 mL IV. Oral contrast: No DLP: 780.88 mGy.cm COMPARISON: 02/17/2023 Lower thorax: Lung bases are clear. Heart is normal size. No hiatal hernia. Liver/biliary system: Normal size with no intrahepatic dilatation. Gallbladder: Normal. No gallstones or wall thickening. No pericholecystic fluid. Pancreas: Normal size pancreas and pancreatic duct. No adjacent inflammation. Spleen: Normal size spleen. No mass or infarct. Adrenal glands: Normal. Right kidney: Normal. Left kidney: Nonobstructing 8 mm calcification lower pole. No obstruction. Aorta: Normal. Lymphadenopathy: None. Free fluid: None. GI tract: Normal stomach. No small bowel obstruction. Moderate diffuse constipation. Prior appendecto my. No significant diverticular disease. No acute diverticulitis. Abdominal wall: Fat containing umbilical hernia. Pelvis: Prior hysterectomy. Negative urinary bladder. Bones: No destructive bone lesion. RIGHT paracentral disc osteophyte on the RIGHT at T12-L1 encroachi ng upon the subarticular recess and proximal foramen. CT/CT abdomen pelvis w con* [id number] IMPRESSION: 1. Prior appendectomy. 2. No GI tract obstruction. 3. Moderate diffuse constipation. No obstruction or diverticulitis. 4. No ascites. No free air.
[2024-06-23] MEDS: iohexol 350 mg/mL 500 mL Btl (per mL) IV (15:31)
[2024-06-23 15:38] LABS: Basophils % 0.4 %; Eosinophils % 0.1 %; Hematocrit 40.2 % (36-47); Lymphocytes # 1.6 10^3/uL (0.8-4.8); Lymphocytes % 18.7 %; Mean Corpuscular HGB Conc 33.8 g/dL (30-55); Mean Corpuscular Hemoglobin 30.1 pg (27-33); Mean Corpuscular Volume 88.9 fl (85-98); Mean Platelet Volume 8.6 fL (7.4-10.4); Monocytes # 0.7 10^3/uL (0.2-0.9); Monocytes % 8.6 %; Neutrophils # 6.09 10^3/uL (1.8-7.7); Neutrophils % 71.7 %; Nucleated Red Blood Cells % 0 %; Platelet Count 294 10^3/cmm (157-399); Red Blood Count 4.52 10^6/uL (3.85-5.65); White Blood Count 8.49 10^3/uL (3.29-11.43)
[2024-06-23 15:57] LABS: HCG, Serum Qual Negative (Negative)
[2024-06-23 15:58] LABS: Alanine Aminotransferase 28 U/L (0-33); Albumin Level 4.3 g/dL (3.5-5.2); Alkaline Phosphatase 76 U/L (35-105); Anion Gap 22.2 (5-19); Aspartate Amino Transferase 23 U/L (0-32); Blood Urea Nitrogen 10 mg/dL (6-20); Calcium 9.8 mg/dL (8.5-10.5); Carbon Dioxide 19 mmol/L (22-29); Chloride 102 mmol/L (98-107); Creatinine Clr Calc Pharmacy 73.5809; Glomerular Filtration Rate 58.9 mL/min (90-130); Glucose 103 mg/dL (65-115); Lipase 21 U/L (13-60); Osmolality Calculated 289 mOsm/kg (285-295); Potassium 3.2 mmol/L (3.5-5.1); Sodium 140 mmol/L (136-145); Total Bilirubin 0.8 mg/dL (0.15-1.2); Total Protein 7.3 g/dL (6.6-8.7)
[2024-06-23] MEDS: potassium chloride ER 20 mEq Tablet 40 MEQ PO (16:04)
[2024-06-23 16:06] VITALS: BP 131/75; PULSE 103; O2SAT 100
[2024-06-23 16:33] VITALS: BP 130/96; PULSE 91; O2SAT 91
--- NOTE | 2024-06-24 17:18 | DCPLANNER ---
Referral sent to [facility]
== END 2024-06-23 16:34 | disposition home or self-care (01) ==
PROVIDERS: Emergency Provider Physician Assistant; PCP Nurse Practitioner Family
DX: R10.9 Unspecified abdominal pain (principal); E87.6 Hypokalemia
CPT/HCPCS: 74177; 80053; 83690; 84703; 85025; 99285